=== PATIENT | male | born 1970 | race African-American/Black ===

== ENCOUNTER 2016-12-11 10:06 | Emergency (ER) | payer BC ==
[2016-12-11] MEDS ORDERED: NAPROXEN500 MG PO (11:00)
[2016-12-11 11:21] LABS: ADD MIUA? YES; BILIRUBIN NEGATIVE; BLOOD SMALL; COLOR STRAW ((YELLOW)); GLUCOSE (STRIP) NEGATIVE; KETONES NEGATIVE; LEUKOCYTES NEGATIVE; NITRITE NEGATIVE; PROTEIN (STRIP) NEGATIVE; SPECIFIC GRAVITY 1.008 (1.000-1.030); UROBILINOGEN 0.2 MG/DL (0.2-1.0)
[2016-12-11 11:23] LABS: HEMATOCRIT 40.4 % (38.0-50.0); MCH 28.8 PG (29.0-34.0); MCHC 33.4 G/DL (30.0-36.0); MCV 86.3 FL (86-99); MEAN PLAT.VOLUME 11.1 uM^3 (9.0-12.4); PLATELET COUNT 269 K/uL (156-360); RBC DIS.WIDTH-CV 12.9 % (11.8-14.6); RBC DIS.WIDTH-SD 40.1 % (39-53); RED BLOOD COUNT 4.68 M/uL (4.00-5.50); WHITE BLOOD COUNT 7.4 K/uL (4.1-10.2)
[2016-12-11 11:36] LABS: CHLORIDE 103 mEq/L (99-109); SODIUM 138 mEq/L (136-147)
[2016-12-11 11:38] LABS: GLUCOSE 112 mg/dL (70-99)
[2016-12-11 11:39] LABS: ANION GAP 11 MEQ/L (2-14)
[2016-12-11 11:42] LABS: GFR ESTIMATE (CALCULATED) > 59 mL/min/
[2016-12-11 11:43] LABS: UREA NITROGEN (BUN) 11 mg/dL (9-23)
[2016-12-11 11:51] LABS: BACTERIA NONE SEEN /HPF; EPITHELIAL CELLS NONE SEEN /HPF; MUCUS NONE SEEN /LPF; RED BLOOD CELLS 0-5 /HPF (0-5); UCUL ADDED? NO; WHITE BLOOD CELLS NONE SEEN /HPF (0-5)
[2016-12-11] MEDS ORDERED: MEDROL DOSEPAK4 MG PO (12:51)
[2016-12-11] MEDS ORDERED: NAPROSYN500 MG PO (12:51)
[2016-12-11] MEDS ORDERED: FLEXERIL10 MG PO (12:51)
[2016-12-11 13:21] VITALS: BP 159/87
== END 2016-12-11 13:22 | disposition home or self-care (01) ==
LOC: EME 10:06
PROVIDERS: Emergency Medicine
DX: R10.31 Right lower quadrant pain (principal); M54.5 Low back pain
CPT/HCPCS: 74176; 80048; 81003; 85027; 87086; 99281; 99283